=== PATIENT | female | born 1950 | race Caucasian/White ===

== ENCOUNTER 2018-01-03 19:38 | Inpatient (IN) | payer MEDICARE, OTHER ==
[~2018-01-03] VITALS: Ht 162.6 cm; Wt 73.0 kg
[2018-01-03] MEDS ORDERED: AMPICILLIN/SULBACTAM 3 GM in SODIUM CHLORIDE 0.9% 100 ML IVPB ONE (20:00)
[2018-01-03] MEDS ORDERED: SODIUM CHLORIDE FLUSH 10ML SYR IVF ONE (20:00)
[2018-01-03 20:27] LABS: BASOPHILS # (AUTO) 0.06 x10^3/uL (0-0.1); BASOPHILS % (AUTO) 1 % (0-1); EOSINOPHILS # (AUTO) 0.13 x10^3/uL (0-0.4); EOSINOPHILS % (AUTO) 1 % (1-7); LYMPHOCYTES # (AUTO) 1.95 x10^3/uL (1-3.4); LYMPHOCYTES % (AUTO) 16 % (22-44); MD NO; MEAN CORPUSCULAR HEMOGLOBIN 29.8 pg (27.0-34.8); MEAN CORPUSCULAR HGB CONC 33.4 g/dL (32.4-35.8); MEAN CORPUSCULAR VOLUME 89.1 fL (80-100); MEAN PLATELET VOLUME 7.5 fL (7.4-10.4); MONOCYTES # (AUTO) 0.99 x10^3/uL (0.2-0.8); MONOCYTES % (AUTO) 8 % (2-9); NEUTROPHILS # (AUTO) 9.27 x10^3/uL (1.8-6.8); NEUTROPHILS % (AUTO) 75 % (42-75); PLATELET COUNT 366 x10^3/uL (130-400); RED BLOOD COUNT 5.01 x10^6/uL (3.82-5.3); RED CELL DISTRIBUTION WIDTH 14.1 % (9.6-15.2)
[2018-01-03 20:34] LABS: ALBUMIN 3.6 g/dL (3.4-5.0); ANION GAP 8 mmol/L (5-15); CALCIUM 9.5 mg/dL (8.5-10.1); CHLORIDE 110 mmol/L (98-107); CREATININE 0.87 mg/dL (0.55-1.02)
[2018-01-03] MEDS ORDERED: VERAPAMIL (20:45)
[2018-01-03] MEDS ORDERED: SYNTHROID (20:45)
[2018-01-03] MEDS ORDERED: VERA180T56 PO (20:54)
[2018-01-03] MEDS ORDERED: LEVO100T PO (20:54)
[2018-01-03] MEDS ORDERED: POLYETHYLENE GLYCOL 17 GM PACKET PO PRN (21:30)
[2018-01-03] MEDS ORDERED: KETOROLAC 30 MG/1 ML IVPush PRN (21:30)
[2018-01-03] MEDS ORDERED: BISACODYL 10 MG SUPP PR PRN (21:30)
[2018-01-03] MEDS ORDERED: ONDANSETRON 2MG/ML, 2ML IVPush PRN (21:30)
[2018-01-03 23:00] VITALS: BP 151/90
[2018-01-04 01:38] VITALS: BP 124/66
[2018-01-04] MEDS: AMPICILLIN/SULBACTAM 3 GM in SODIUM CHLORIDE 0.9% 100 ML IV SCH ×4 (02:00→20:54)
[2018-01-04] MEDS: SODIUM CHLORIDE FLUSH 10ML SYR IVF SCH ×3 (02:02→20:54)
[2018-01-04] MEDS: LEVOTHYROXINE 100 MCG TABLET PO SCH (05:34)
[2018-01-04 05:47] LABS: BASOPHILS # (AUTO) 0.02 x10^3/uL (0-0.1); BASOPHILS % (AUTO) 0 % (0-1); EOSINOPHILS # (AUTO) 0.18 x10^3/uL (0-0.4); EOSINOPHILS % (AUTO) 2 % (1-7); LYMPHOCYTES # (AUTO) 1.84 x10^3/uL (1-3.4); LYMPHOCYTES % (AUTO) 23 % (22-44); MD NO; MEAN CORPUSCULAR HEMOGLOBIN 29.8 pg (27.0-34.8); MEAN CORPUSCULAR HGB CONC 33.4 g/dL (32.4-35.8); MEAN CORPUSCULAR VOLUME 89.3 fL (80-100); MEAN PLATELET VOLUME 7.6 fL (7.4-10.4); MONOCYTES # (AUTO) 0.62 x10^3/uL (0.2-0.8); MONOCYTES % (AUTO) 8 % (2-9); NEUTROPHILS # (AUTO) 5.26 x10^3/uL (1.8-6.8); NEUTROPHILS % (AUTO) 66 % (42-75); PLATELET COUNT 294 x10^3/uL (130-400); RED BLOOD COUNT 4.57 x10^6/uL (3.82-5.3); RED CELL DISTRIBUTION WIDTH 13.6 % (9.6-15.2)
[2018-01-04 05:55] LABS: ALBUMIN 3.1 g/dL (3.4-5.0); ANION GAP 8 mmol/L (5-15); CALCIUM 8.9 mg/dL (8.5-10.1); CHLORIDE 113 mmol/L (98-107)
[2018-01-04 05:59] LABS: ALANINE AMINOTRANSFERASE 19 U/L (12-78); ALKALINE PHOSPHATASE 111 U/L (45-117); BILIRUBIN,TOTAL 0.8 mg/dL (0.2-1.0); CREATININE 0.68 mg/dL (0.55-1.02); TOTAL PROTEIN 6.2 g/dL (6.4-8.2)
[2018-01-04] MEDS: VERAPAMIL ER 180MG TABLET.ER PO SCH (08:16)
[2018-01-04 08:17] VITALS: BP 120/73
[2018-01-04] MEDS: SENNA/DOCUSATE TABLET PO SCH (08:33)
[2018-01-04] MEDS ORDERED: VANCOMYCIN 1,000 MG in SODIUM CHLORIDE 0.9% 250 ML IVPB SCH (09:00)
[2018-01-04 09:05] VITALS: BP 121/81
[2018-01-04] MEDS ORDERED: IBUPROFEN 200 MG TABLET PO PRN (10:00)
[2018-01-04 15:50] VITALS: BP 118/73
[2018-01-04] MEDS: ACETAMINOPHEN 325 MG TABLET PO PRN (15:59)
[2018-01-04 20:35] VITALS: BP 107/69
[2018-01-05 01:32] VITALS: BP 137/87
[2018-01-05] MEDS: AMPICILLIN/SULBACTAM 3 GM in SODIUM CHLORIDE 0.9% 100 ML IV SCH ×4 (02:56→21:16)
[2018-01-05] MEDS: LEVOTHYROXINE 100 MCG TABLET PO SCH (05:29)
[2018-01-05 08:00] VITALS: BP 132/83
[2018-01-05] MEDS: SENNA/DOCUSATE TABLET PO SCH (09:00)
[2018-01-05] MEDS: VERAPAMIL ER 180MG TABLET.ER PO SCH (09:40)
[2018-01-05] MEDS: SODIUM CHLORIDE FLUSH 10ML SYR IVF SCH ×2 (09:40→21:16)
[2018-01-05] MEDS: ACETAMINOPHEN 325 MG TABLET PO PRN (09:48)
[2018-01-05 11:24] LABS: HCT (SEDRATE) 42.2 % (34.6-47.8)
[2018-01-05 14:30] VITALS: BP 105/67
[2018-01-05] MEDS ORDERED: LORazepam 2 MG/ML, 1ML IVPush ONE (18:00)
[2018-01-05] MEDS ORDERED: GADOBUTROL 7.5 MMOL/7.5 ML VIAL ONE (18:48)
[2018-01-05 19:19] VITALS: BP 118/78
[2018-01-06 01:36] VITALS: BP 121/78
[2018-01-06] MEDS: AMPICILLIN/SULBACTAM 3 GM in SODIUM CHLORIDE 0.9% 100 ML IV SCH ×2 (04:15→10:38)
[2018-01-06] MEDS: LEVOTHYROXINE 100 MCG TABLET PO SCH (05:23)
[2018-01-06 07:18] VITALS: BP 125/80
[2018-01-06] MEDS: SENNA/DOCUSATE TABLET PO SCH (09:00)
[2018-01-06] MEDS: VERAPAMIL ER 180MG TABLET.ER PO SCH (10:40)
[2018-01-06] MEDS: SODIUM CHLORIDE FLUSH 10ML SYR IVF SCH (10:41)
[2018-01-06] MEDS: ACETAMINOPHEN 325 MG TABLET PO PRN (10:46)
[2018-01-06 12:26] VITALS: BP 112/73
[2018-01-06] MEDS ORDERED: AMOX1TAB64 PO (16:09)
[2018-01-06] MEDS ORDERED: IBUP-1484 PO (16:09)
[2018-01-06] MEDS ORDERED: ACET325T14 PO (16:09)
== END 2018-01-06 18:07 | disposition home or self-care (01) | DRG 872 ==
LOC: ED 21:13 → EDIP 21:33 → 3NE 21:58
PROVIDERS: ADMIT Hospitalist; ATTEND Hospitalist
DX: A41.9 Sepsis, unspecified organism (principal); L03.114 Cellulitis of left upper limb; S61.452A Open bite of left hand, initial encounter; Z23 Encounter for immunization; E03.9 Hypothyroidism, unspecified; I10 Essential (primary) hypertension; D72.829 Elevated white blood cell count, unspecified; R00.0 Tachycardia, unspecified; W54.0XXA Bitten by dog, initial encounter; Z90.710 Acquired absence of both cervix and uterus
CPT/HCPCS: 36415; 80048; 80053; 82040; 85025; 85651; 86140; 87070; 87205; 96365; 96366; 99285; A9585; J0295; J2060